=== PATIENT | male | born 1990 | race Caucasian/White ===

== ENCOUNTER 2017-06-08 08:01 | Emergency (ER) | payer OTHER ==
[2017-06-08] MEDS: ACETAMINOPHEN 500 MG TAB PO (08:29)
[2017-06-08 09:57] LABS: ADD UMIC YES; UR ASCORBIC ACID NEGATIVE (NEGATIVE); UR BILIRUBIN (Dip) NEGATIVE (NEGATIVE); UR BLOOD (Dip) 1+ mg/dL (NEGATIVE); UR CLARITY CLEAR (CLEAR); UR COLOR YELLOW (YELLOW); UR GLUCOSE (Dip) NEGATIVE (NEGATIVE); UR KETONES (Dip) NEGATIVE (NEGATIVE); UR LEUKOCYTE ESTERASE (Dip) NEGATIVE Leu/ul (NEGATIVE); UR NITRITE (Dip) NEGATIVE (NEGATIVE); UR RBC 0 /HPF (0-5); UR SPECIFIC GRAVITY (Dip) 1.013 (1.003-1.030); UR TOTAL PROTEIN (Dip) NEGATIVE (NEGATIVE); UR UROBILINOGEN (Dip) NEGATIVE (NEGATIVE); UR WBC 0 /HPF (0-5)
== END 2017-06-08 10:11 | disposition home or self-care (01) ==
LOC: FTE 08:01
DX: K62.89 Other specified diseases of anus and rectum (principal); R30.0 Dysuria; R10.30 Lower abdominal pain, unspecified; R19.7 Diarrhea, unspecified; R11.10 Vomiting, unspecified; M54.9 Dorsalgia, unspecified
CPT/HCPCS: 81001; 99284

== ENCOUNTER 2017-06-16 07:18 | Emergency (ER) | payer OTHER | END 2017-06-16 08:29 | disposition home or self-care (01) | LOC: FTE 07:18 | DX: J02.9 Acute pharyngitis, unspecified (principal); F17.210 Nicotine dependence, cigarettes, uncomplicated | CPT/HCPCS: 99283; Z7502 ==

== ENCOUNTER 2017-06-23 15:18 | Emergency (ER) | payer OTHER | END 2017-06-23 16:35 | disposition home or self-care (01) | LOC: E/R 15:18 | DX: R11.10 Vomiting, unspecified (principal); R10.13 Epigastric pain; Z87.891 Personal history of nicotine dependence | CPT/HCPCS: 99283; Z7502 ==

== ENCOUNTER 2017-07-15 12:55 | Emergency (ER) | payer OTHER | END 2017-07-15 13:15 | disposition home or self-care (01) | LOC: E/R 13:15 | DX: K08.89 Other specified disorders of teeth and supporting structures (principal); F17.210 Nicotine dependence, cigarettes, uncomplicated | CPT/HCPCS: 99283 ==

== ENCOUNTER 2018-01-25 09:51 | Emergency (ER) | payer OTHER ==
[2018-01-25] MEDS: LIDOCAINE/MYLANTA 40 ML BTL PO (11:56)
== END 2018-01-25 13:39 | disposition home or self-care (01) ==
LOC: FTE 09:51
DX: R09.89 Other specified symptoms and signs involving the circulatory and respiratory systems (principal); F17.210 Nicotine dependence, cigarettes, uncomplicated
CPT/HCPCS: 70360; 99283-25

== ENCOUNTER 2018-03-10 18:00 | Emergency (ER) | payer OTHER | END 2018-03-10 21:10 | disposition home or self-care (01) | LOC: FTE 18:00 | DX: M25.512 Pain in left shoulder (principal); F17.210 Nicotine dependence, cigarettes, uncomplicated | CPT/HCPCS: 73030; 99283-25 ==

== ENCOUNTER 2018-03-16 06:41 | Emergency (ER) | payer OTHER | END 2018-03-16 08:27 | disposition home or self-care (01) | LOC: FTE 06:41 | DX: M79.602 Pain in left arm (principal); F17.210 Nicotine dependence, cigarettes, uncomplicated | CPT/HCPCS: 76536; 99284-25 ==

== ENCOUNTER 2018-08-12 06:28 | Emergency (ER) | payer OTHER | END 2018-08-12 08:10 | disposition home or self-care (01) | LOC: FTE 06:28 | DX: R22.1 Localized swelling, mass and lump, neck (principal) | CPT/HCPCS: 76536; 99284-25 ==